=== PATIENT | female | born 1970 | race Caucasian/White ===

== ENCOUNTER 2020-02-08 18:35 | Emergency (ER) | payer OTHER, SELFPAY ==
[2020-02-08 18:42] VITALS: BP 186/76; PULSE 64; RESP 14; TEMP 36.7; O2SAT 99; BMI 38.7
[2020-02-08 20:30] VITALS: BP 129/76; PULSE 80; RESP 16; TEMP 37; O2SAT 98
[2020-02-08 20:39] LABS: Bacteria Urine None Seen; RBC Urine None Seen (0-5/HPF)
--- NOTE | 2020-02-08 20:46 | ED_ITS ---
HPI - Female Genitourinary General Chief complaint: Urogenital-Female Stated complaint: vaginal itch,extreme pain past week Time Seen by Provider: 02/08/20 20:07 Source: patient Mode of arrival: Ambulatory Limitations: no limitations History of Present Illness HPI Narrative: 49-year-old female nonsmoker presents with her a chief complaint of significant vaginal itching over the course of the week. She has had yeast infections before and tried Monistat wipes but was unsuccessful. She has had no vaginal discharge and denies dysuria, frequency or urgency. She denies vaginal bleeding. She denies any systemic findings such as fever, chills nor nausea or vomiting. She denies recent antibiotic use or any change in her diet. MD Complaint: genital swelling and other Onset (ago): day(s) Location: labia Severity: moderate Quality: Itching Duration: constant Relieving factors: none Exacerbating factors: none Patient : No Related Data Previous Rx's Medication Instructions Recorded fluconazole 150 mg PO DAILY #1 tab 02/08/20 Allergies Allergy/AdvReac Type Severity Reaction Status Date / Time No Known Drug Allergies Allergy Verified 02/08/20 18:41 Review of Systems Constitutional Constitutional: Denies chills, Denies fatigue, Denies fever(s), Denies frequent falls, Denies lethargy and Denies weakness Eyes Eyes: Denies change in vision, Denies eye discharge, Denies irritation and Denies loss of vision ENT Ears, Nose, Mouth, and Throat: Denies change in voice, Denies dizziness, Denies neck pain, Denies sore throat and Denies throat swelling Cardiovascular Cardiovascular: Denies chest pain, Denies irregular heart rhythm, Denies lightheadedness, Denies palpitations, Denies dyspnea, Denies dyspnea on exertion and Denies orthopnea Respiratory Respiratory: Denies cough, Denies dyspnea, Denies dyspnea on exertion and Denies wheezing Gastrointestinal Gastrointestinal: Denies abdominal pain, Denies change in bowel habits, Denies diarrhea, Denies nausea and Denies vomiting Genitourinary Genitourinary: Reports genital pruritis Musculoskeletal Musculoskeletal: Denies neck pain and Denies numbness Integumentary/Breasts Skin/Breast: Denies pruritus, Denies erythema, Denies rash and Denies wounds Neurologic Neurologic: Denies behavioral changes, Denies confusion, Denies dizziness, Denies frequent falls, Denies loss of vision, Denies numbness and Denies weakness Psychiatric Psychiatric: Denies anxiety, Denies behavioral changes, Denies confusion, Denies depression, Denies homicidal ideation and Denies suicidal ideation Endocrine Endocrine: Denies fatigue, Denies flushing and Denies palpitations Hematologic/Lymphatic Hematologic/Lymphatic: Denies easy bruising Allergic/Immunologic Allergic/Immunologic: Denies urticaria, Denies throat swelling and Denies wheezing Patient History Substance Use Type: does not use Exam Narrative Exam Narrative: GEN: AOx3 and in mild distress EYES: Pupils are equal, round, and reactive to light and accommodation. Extraoccular muscles are intact bilaterally. There is no subconjunctival hemorrhage or exudate. CHEST: Lungs are clear to auscultation bilaterally and free of wheezes, rales, or rhonchi. Heart rate is regular rhythm, there are no murmurs, clicks, rubs, or gallops. There is no chest wall tenderness. ABD: Abdomen is soft and nontender. There is no guarding or rebound. Bowel sounds are normal in all 4 quadrants. There is no mass or organomegaly. PELVIC: White discharge, erythematous external genitalia, pruritic. Minimal cervical discharge, no cervical pain or bleeding. EXT: Full painless ROM of all extremities with no loss of sensation or strength. SKIN: Warm, pink, and dry. No erythema or rash Initial Vital Signs Initial Vital Signs: Vital Signs Temperature 98.0 F 02/08/20 18:42 Pulse Rate 64 02/08/20 18:42 Respiratory Rate 14 02/08/20 18:42 Blood Pressure 186/76 H 02/08/20 18:42 Pulse Oximetry 99 02/08/20 18:42 Course Orders Ordered: ED Orders 02/08/20 20:37 Urine Microscopic Stat 02/08/20 21:10 Genital Culture Stat RENETTA Prep Stat Discontinued Medications Fluconazole (Diflucan) 150 mg PO NOW ONE Stop: 02/08/20 21:15 Last Admin: 02/08/20 21:47 Dose: 150 mg Documented by: [email or web address] Vital Signs Vital signs: Vital Signs - 8 hr 02/08/20 18:42 02/08/20 20:30 Temperature 98.0 F 98.6 F Pulse Rate 64 80 Respiratory Rate 14 16 Blood Pressure 186/76 H 129/76 Pulse Oximetry 99 98 MDM - Female Genitourinary Lab Data Labs: Lab Results 02/08/20 Range/Units 20:37 Urine RBC None seen (0-5/HPF) Urine WBC 10-30/hpf H (0-5/HPF) Ur Squamous Epith Cells 10-30 /hpf H (0-5/HPF) Urine Bacteria None seen (None) Ur Culture Indicated? Cult not indicated Urine Dip Bedside Urine Glucose 1000 mg/dl Bedside Urine Bilirubin + 1 Bedside Urine Ketone - Negative Urine Specific [place] 1.030 Bedside Urine Occult Blood - Negative Bedside Urine pH 5.5 Bedside Urine Protein +/- 15 Bedside Urine Urobilinogen +/- 1mg Bedside Urine Nitrite - Negative Bedside Urine Leukocytes + 70 Esterase Discharge Plan Departure Patient Disposition: Home Clinical Impression: Vulvovaginal candidiasis Discharge Date/Time: 02/08/20 21:45 Instructions: DI for Vaginal Yeast Infection Activity Restrictions/Additional Instructions: *You have been diagnosed with [yeast infection (Volvo vaginal candidiasis)] *What to do: *Take medications as directed *Follow up with your primary care provider on Tuesday as planned. Also, let them know you were seen in the Emergency Department and that we ask that you be seen in follow up *Return to ER if you should have any new, worsening or concerning symptoms Prescriptions: New fluconazole 150 mg tablet 150 mg PO DAILY Qty: 1 RF: 0 Referrals: Marcelle Sexton MD [Primary Care Provider] -
[2020-02-08 20:52] LABS: Culture Indicated Urine Cult Not Indicated; Squamous Epithelial Cell Urine 10-30 /HPF (0-5/HPF); WBC Urine 10-30/HPF (0-5/HPF)
[2020-02-08] MEDS: FLUCONAZOLE 150 MG TABLET PO (21:47)
== END 2020-02-08 21:45 | disposition home or self-care (01) ==
PROVIDERS: Emergency Provider Emergency Medicine; PCP Family Medicine
DX: B37.3 Candidiasis of vulva and vagina (principal)
CPT/HCPCS: 81003; 81015; 87070; 87077; 87205; 87220; 99283

== ENCOUNTER → 2020-07-26 13:52 | Outpatient (CLI) | payer OTHER, SELFPAY ==
--- NOTE | 2020-07-26 | DI.MG.S_ITS ---
BILATERAL DIGITAL SCREENING MAMMOGRAM 3D/2D WITH CAD: 07/26/2020 CLINICAL: Routine screening. Comparison is made to exams dated: 02/27/2013 mammogram, 05/12/2015 mammogram, and 04/18/2018 mammogram - [facility]. There are scattered fibroglandular elements in both breasts. Current study was also evaluated with a Computer Aided Detection (CAD) system. No significant masses, calcifications, or other findings are seen in either breast. There has been no significant interval change. IMPRESSION: NEGATIVE There is no mammographic evidence of malignancy. A 1 year screening mammogram is recommended. This exam was interpreted at Station ID: [id number]. NOTE: For mammograms, a report in lay terms will be sent to the patient. Approximately 15% of breast malignancies will not be visualized mammographically. In the management of a palpable breast mass, a negative mammogram must not discourage biopsy of a clinically suspicious lesion. Electronically Signed By: Fahad carlos/vignesh:07/28/2020 10:40:36 letter sent: Normal Exam ACR BI-RADS Category 1: Negative [id number]
== END ==
PROVIDERS: PCP Family Medicine; Referring Provider Family Medicine; Visit Provider Family Medicine
DX: Z12.31 Encounter for screening mammogram for malignant neoplasm of breast (principal)
CPT/HCPCS: 77063; 77067

== ENCOUNTER 2021-03-04 19:30 | Emergency (ER) | payer OTHER, SELFPAY ==
[2021-03-04] VITALS (9 sets, daily range): BP systolic 112–128; BP diastolic 57–85; PULSE 71–113; RESP 16–20; TEMP 36.7; O2SAT 93–97
--- NOTE | 2021-03-04 20:11 | DI.RAD.S_ITS ---
PROCEDURE: XR CHEST 1V INDICATIONS: suspected sepsis TECHNIQUE: One view of the chest was acquired. COMPARISON: None. FINDINGS: Surgical changes and devices: None. Lungs and pleura: Lungs are clear. No pleural effusions or pneumothorax. Mediastinum: Mediastinal contours appear normal. Heart size is normal. Bones and chest wall: No suspicious bony lesions. Overlying soft tissues appear unremarkable. IMPRESSION: No acute cardiopulmonary process. Dictated by: Juwan Link M.D. on 03/04/2021 at 20:45 Approved by: Juwan Link M.D. on 03/04/2021 at 20:46
[2021-03-04 20:14] LABS: COVID19 -Nasal RAPID POSITIVE (Negative)
[2021-03-04] MEDS: SODIUM CHLORIDE 0.9% 1,000 ML 1000 ML IV (20:46)
[2021-03-04] MEDS: KETOROLAC 30 MG/ML VIAL 15 MG IV (20:47)
[2021-03-04 21:17] LABS: Add Manual Diff / Slide Review NO; Basophils Absolute Auto 0 /uL (0-100); Basophils Percent Auto 0.7 % (0-2); Eosinophils Absolute Auto 0 /uL (0-450); Hematocrit 45.9 % (36-46); Hemoglobin 15.4 g/dL (12.0-16.0); Lymphocytes Absolute Auto 900 /uL (1100-4500); Lymphocytes Percent Auto 23.9 % (25-40); Mean Corpuscular HGB Conc 33.4 % (30-36); Mean Corpuscular Hemoglobin 29.3 PG (26-34); Mean Corpuscular Volume 87.7 fL (80-100); Monocytes Absolute Auto 300 /uL (0-900); Monocytes Percent Auto 7.2 % (3-14); Neutrophils Absolute Auto 2600 /uL (1500-7000); Neutrophils Percent Auto 68.2 % (50-75); Platelet Count 204 X10^3/uL (150-400); Red Blood Cell Count 5.24 X10^6/uL (4.0-5.2); Red Cell Distribution Width 13.5 % (11.6-14.8); White Blood Cell Count 3.9 X10^3/uL (4.5-11.0)
[2021-03-04 21:24] LABS: Alanine Aminotransferase 49 IU/L (<35); Albumin 4.2 g/dL (3.5-5.0); Albumin Globulin Ratio 1.4 (1.0-2.8); Alkaline Phosphatase 144 U/L (38-126); Aspartate Aminotransferase 45 IU/L (14-36); BUN Creatinine Ratio 19.6 (6-22); Bilirubin Total 0.3 mg/dL (0.2-1.3); Blood Urea Nitrogen 10 mg/dL (7-17); Calcium 8.8 mg/dL (8.4-10.2); Carbon Dioxide 23 mmol/L (22-32); Chloride 100 mmol/L (98-107); Estimated Glomerular Filt Rate > 60.0 mL/min (>60); Globulin 3.1 g/dL (1.7-4.1); Glucose 372 mg/dL (70-100); HEMOLYSIS < 15 (0-50); Lipase 252 U/L (23-300); Potassium 4.4 mmol/L (3.4-5.1); Sodium 132 mmol/L (137-145); Total Protein 7.3 g/dL (6.3-8.2)
[2021-03-04 21:41] LABS: Procalcitonin 0.07 ng/mL (<0.5)
--- NOTE | 2021-03-04 21:54 | ED_ITS ---
HPI - Headache General Chief Complaint: Headache Stated Complaint: migraine since tuesday, unsteady on feet Time Seen by Provider: 03/04/21 20:14 Mode of arrival: Ambulatory History of Present Illness HPI Narrative: 53-year-old woman with a history of depression, diabetes that has been untreated for the last year as she has had difficulty getting in to providers presents with worsening headache over the last 3 days. Last night she noted fevers and chills mild cough she is not complaining of nausea vomiting or diarrhea. She is not particularly short of breath and she is having no chest pain. She states that she does have a history of migraines and initially thought that she was having some allergy issues and a migraine headache. Yesterday she needs to leave work because the headache was so severe not responding to ibuprofen or Tylenol. She is not COVID vaccinated. She is not complaining of heart palpitations and has not noticed changes to taste or smell. Related Data Previous Rx's Medication Instructions Recorded fluconazole 150 mg tablet 150 mg PO DAILY #1 tab 02/08/20 Allergies Allergy/AdvReac Type Severity Reaction Status Date / Time No Known Drug Allergies Allergy Verified 02/08/20 18:41 Review of Systems Review of Systems Narrative: Remainder of complete review of systems is otherwise unremarkable except for that included in the HPI. Patient History Medical History COVID-19 Depression Diabetes Migraine Social History Smoking Status: Never smoker Smoking Status: Never smoker Substance Use Type: does not use Exam Narrative Exam Narrative: General: Healthy appearing, moderate headache pain Able to give a complete and coherent history. Well-nourished well-developed HEENT: Moist mucous membranes, normal sclera with reactive pupils, Respiratory: Lungs are clear to auscultation, no wheezing no rales no rhonchi. Full and symmetrical air movement Cardiac: Tachycardic with Regular rate and rhythm no murmurs no bruits Abdomen: Soft, nontender, good bowel tones, no flank pain Skin: Warm and dry, no rashes Neurologic: Grossly neurologically intact with no obvious asymmetries or abnormalities Extremities: No trauma, well perfused Psych: Cooperative, appropriate insight and affect Initial Vital Signs Initial Vital Signs: Vital Signs Temperature 98.1 F 03/04/21 19:36 Pulse Rate 113 H 03/04/21 19:36 Respiratory Rate 20 03/04/21 19:36 Blood Pressure 127/81 03/04/21 19:36 Pulse Oximetry 97 03/04/21 19:36 Course Orders Ordered: ED Orders 03/04/21 19:50 COVID19 -Nasal swab/Pre-Proc Stat 03/04/21 20:11 XR chest 1V Stat 03/04/21 21:05 Complete Blood Count AUTO DIFF Stat Comprehensive Metabolic Panel Stat Lactate (Lactic Acid) Stat Lipase Stat Procalcitonin Stat 03/04/21 21:28 EKG-12 Lead Stat 03/04/21 22:05 Blood Culture Stat Discontinued Medications Sodium Chloride (Normal Saline 0.9%) 1,000 mls @ 1,000 mls/hr IV BOLUS ONE Stop: 03/04/21 21:16 Last Infusion: 03/04/21 22:40 Dose: 0 mls/hr Documented by: Admin: 03/04/21 20:46 Dose: 1,000 mls/hr Documented by: ARGENIS CASIRIVIMAB/IMDEVIMAB 10 ml/ (Sodium Chloride) 260 mls @ 260 mls/hr IV NOW ONE Stop: 03/05/21 00:44 Last Admin: 03/05/21 00:03 Dose: 260 mls/hr Documented by: KLEVER Ketorolac Tromethamine (Ketorolac 30 Mg/Ml Vial) 15 mg IV NOW ONE Stop: 03/04/21 20:25 Last Admin: 03/04/21 20:47 Dose: 15 mg Documented by: ARGENIS Vital Signs Vital signs: Vital Signs - 8 hr 03/04/21 19:36 03/04/21 21:19 03/04/21 21:30 Temperature 98.1 F Pulse Rate 113 H 100 H 97 H Respiratory Rate 20 Blood Pressure 127/81 127/73 Pulse Oximetry 97 95 94 03/04/21 22:00 Temperature Pulse Rate 79 Respiratory Rate 16 Blood Pressure 117/57 L Pulse Oximetry 95 MDM - Headache Lab Data Result diagrams: 03/04/21 21:05 03/04/21 21:05 Labs: Lab Results 03/04/21 03/04/21 03/04/21 Range/Units 19:50 21:05 21:05 WBC 3.9 L (4.5-11.0) X10^3/uL RBC 5.24 H (4.0-5.2) X10^6/uL Hgb 15.4 (12.0-16.0) g/dL Hct 45.9 (36-46) % MCV 87.7 (80-100) fL MCH 29.3 (26-34) PG MCHC 33.4 (30-36) % RDW 13.5 (11.6-14.8) % Plt Count 204 (150-400) X10^3/uL Neut % (Auto) 68.2 (50-75) % Lymph % (Auto) 23.9 L (25-40) % Mcleod % (Auto) 7.2 (3-14) % Eos % (Auto) 0.0 L (2-4) % Baso % (Auto) 0.7 (0-2) % Neut # (Auto) 2600 (1605-4811) /uL Lymph # (Auto) 900 L (6509-2097) /uL Mcleod # (Auto) 300 (0-900) /uL Eos # (Auto) 0 (0-450) /uL Baso # (Auto) 0 (0-100) /uL Sodium 132 L (137-145) mmol/L Potassium 4.4 (3.4-5.1) mmol/L Chloride 100 (98-107) mmol/L Carbon Dioxide 23 (22-32) mmol/L BUN 10 (7-17) mg/dL Creatinine 0.51 L (0.52-1.04) mg/dL Estimated GFR > 60.0 (>60) mL/min BUN/Creatinine Ratio 19.6 (6-22) Glucose 372 H (70-100) mg/dL Lactate (0.7-2.1) mmol/L Calcium 8.8 (8.4-10.2) mg/dL Total Bilirubin 0.3 (0.2-1.3) mg/dL AST 45 H (14-36) IU/L ALT 49 H (<35) IU/L Alkaline Phosphatase 144 H (38-126) U/L Total Protein 7.3 (6.3-8.2) g/dL Albumin 4.2 (3.5-5.0) g/dL Globulin 3.1 (1.7-4.1) g/dL Albumin/Globulin Ratio 1.4 (1.0-2.8) Lipase 252 (23-300) U/L Procalcitonin 0.07 (<0.5) ng/mL SARS-CoV-2 (PCR) Positive H (Negative) 03/04/21 Range/Units 21:05 WBC (4.5-11.0) X10^3/uL RBC (4.0-5.2) X10^6/uL Hgb (12.0-16.0) g/dL Hct (36-46) % MCV (80-100) fL MCH (26-34) PG MCHC (30-36) % RDW (11.6-14.8) % Plt Count (150-400) X10^3/uL Neut % (Auto) (50-75) % Lymph % (Auto) (25-40) % Mcleod % (Auto) (3-14) % Eos % (Auto) (2-4) % Baso % (Auto) (0-2) % Neut # (Auto) (9410-3419) /uL Lymph # (Auto) (9516-4883) /uL Mcleod # (Auto) (0-900) /uL Eos # (Auto) (0-450) /uL Baso # (Auto) (0-100) /uL Sodium (137-145) mmol/L Potassium (3.4-5.1) mmol/L Chloride (98-107) mmol/L Carbon Dioxide (22-32) mmol/L BUN (7-17) mg/dL Creatinine (0.52-1.04) mg/dL Estimated GFR (>60) mL/min BUN/Creatinine Ratio (6-22) Glucose (70-100) mg/dL Lactate 2.0 (0.7-2.1) mmol/L Calcium (8.4-10.2) mg/dL Total Bilirubin (0.2-1.3) mg/dL AST (14-36) IU/L ALT (<35) IU/L Alkaline Phosphatase (38-126) U/L Total Protein (6.3-8.2) g/dL Albumin (3.5-5.0) g/dL Globulin (1.7-4.1) g/dL Albumin/Globulin Ratio (1.0-2.8) Lipase (23-300) U/L Procalcitonin (<0.5) ng/mL SARS-CoV-2 (PCR) (Negative) Imaging Data Chest x-ray: Radiologist's Impression: FINDINGS: Surgical changes and devices: None. Lungs and pleura: Lungs are clear. No pleural effusions or pneumothorax. Mediastinum: Mediastinal contours appear normal. Heart size is normal. Bones and chest wall: No suspicious bony lesions. Overlying soft tissues appear unremarkable. IMPRESSION: No acute cardiopulmonary process. Dictated by: Juwan Link M.D. on 03/04/2021 at 20:45 ECG Data Interpretation: Sinus rhythm at a rate of 95 Normal axis, normal intervals No acute ischemic changes MDM Narrative Medical decision making narrative: 50-year-old woman with untreated diabetes for the last year, hypertension on day 2-3 of COVID infection, unvaccinated with severe headache is presenting sign. Oxygen saturations are in the 96% range in she will be available to be discharged home. She would be an excellent monoclonal antibody patient. Casirivimab/imdevimab is infused. Patient is observed for an hour post infusion tolerated it well. She is safe for discharge home at this time Discharge Plan Departure Patient Disposition: Home Clinical Impression: COVID-19 Instructions: DI for COVID-19 (Suspected or Confirmed ) Activity Restrictions/Additional Instructions: You received a monoclonal antibody infusion in the emergency room today hopefully this will help your body fight the COVID-19 infection so that you do not need to be admitted to the hospital. If you have worsening shortness of breath you do need to return to the emergency department for further evaluation. Please follow-up outlined self quarantine and isolation as above to avoid sha ring the virus with other people. I hope you heal quickly Prescriptions: No Action fluconazole 150 mg tablet 150 mg PO DAILY Qty: 1 RF: 0 Referrals: Sallie Olguin DO [Primary Care Provider] -
[2021-03-05] VITALS (7 sets, daily range): BP systolic 106–142; BP diastolic 53–75; PULSE 64–69; RESP 18; TEMP 36.9; O2SAT 91–96
[2021-03-05] MEDS: IMDEVIMAB IV (00:03)
[2021-03-05] MEDS: SODIUM CHLORIDE IV (00:03)
[2021-03-05] MEDS: CASIRIVIMAB IV (00:03)
== END 2021-03-05 02:05 | disposition home or self-care (01) ==
PROVIDERS: Emergency Provider Emergency Medicine; PCP Family Medicine
DX: U07.1 COVID-19 (principal)
CPT/HCPCS: 36415; 71045; 80053; 83605; 83690; 84145; 85025; 87040; 87635; 93005; 93010; 96361; 96365; 96375; 99284; C9803; J1885

== ENCOUNTER 2022-07-18 17:19 | Emergency (ER) | payer OTHER, SELFPAY ==
[2022-07-18] VITALS (7 sets, daily range): BP systolic 116–147; BP diastolic 66–105; PULSE 72–128; RESP 16; TEMP 36.8; O2SAT 96–99; BMI 35.3
--- NOTE | 2022-07-18 18:18 | ED.FALL ---
HPI - Fall <Alanis Donnelly PA-C - Last Filed: 07/18/22 20:35> General Chief Complaint: Fall Stated Complaint: fell down the stairs, tail bone pain Time Seen by Provider: 07/18/22 17:27 Source: patient Mode of arrival: Ambulatory History of Present Illness HPI Narrative: Patient is 52 years old female, who slipped and fell her wooden steps about 3:15 p.m. this noon, she landed on her coccyx, slid down about 3 4 steps down, was able to get up. However as the day went by, her pain and costal area got really bad, now grading about 8/10. Noticed sitting is especially difficult, while she if she is moving, pain is about 3 to 4/10. Patient reports she had some pelvic fracture some time ago. She denies any tingling numbness, in lower extremity, loss of control over her bowel or urination functions. Related Data Previous Rx's Medication Instructions Recorded fluconazole 150 mg tablet 150 mg PO DAILY 1 dose #1 tab 02/08/20 tramadol 50 mg tablet 50 mg PO TID PRN pain #20 tabs 07/18/22 Allergies Allergy/AdvReac Type Severity Reaction Status Date / Time No Known Drug Allergies Allergy Verified 07/18/22 18:24 Review of Systems <Alanis Donnelly PA-C - Last Filed: 07/18/22 20:35> Review of Systems Narrative: GENERAL: Denies chills, fatigue, malaise, fever, sweats. HEENT: Denies sinus pain, ear pain, sore throat, difficulty swallowing, dizziness. RESPIRATORY: Denies dyspnea, cough, wheezing, hemoptysis, sputum. CARDIOVASCULAR: Denies chest pain, palpitations, orthopnea, edema, GASTROINTESTINAL: Denies nausea, vomiting, abdominal pain, diarrhea, constipation, melena. : Denies dysuria, frequency, incontinence, hematuria, urinary retention. MUSCULOSKELETAL: denies weakness, in lower extremity, admits to coccyx pain no other joint pain, or bony pain SKIN: Denies rash, skin lesions, or other NEUROLOGIC: Denies weakness, headache, numbness, change in speech, confusion, seizures, incoordination. PSYCHIATRIC: No concerning psychosocial issues. 12 point review of systems is negative except for those stated above Patient History <Alanis Donnelly PA-C - Last Filed: 07/18/22 20:35> Medical History COVID-19 Depression Diabetes Migraine Social History Smoking Status: Never smoker Smoking Status: Never smoker alcohol intake frequency: holidays/special occasions only Substance Use Type: marijuana Exam <Alanis Donnelly PA-C - Last Filed: 07/18/22 20:35> Narrative Exam Narrative: GENERAL: 52 year old patient appears stated age. Well-developed patient, in no acute distress. She appears comfortable lying on the side of her bed. HEAD: Atraumatic. Normocephalic. EYES: Pupils equal round and reactive. Extraocular motions intact. No scleral icterus. No injection or drainage. ENT: Nose without bleeding, purulent drainage. Throat without erythema, tonsillar hypertrophy or exudate. Airway patent. NECK: Trachea midline. Non tender CARDIOVASCULAR: Regular rate and rhythm without murmurs, gallops, or rubs. RESPIRATORY: Clear to auscultation. Breath sounds equal bilaterally. No wheezes, rales, or rhonchi. GASTROINTESTINAL: Abdomen soft, non-tender, nondistended. EXTREMITIES: No edema or joint tenderness. BACK: coccyx area inspected, no ecchymosis, tenderness advised distal coccyx. The rest of spine is Nontender without deformity or crepitance. No flank tenderness. NEURO: AOx3. Lower extremity reflexes patellar Achillis is normal, symmetric bilaterally. SKIN: No rash or erythema of visible areas no bruises around coccyx area Initial Vital Signs Initial Vital Signs: Vital Signs Temperature 98.2 F 07/18/22 17:42 Pulse Rate 128 H 07/18/22 17:42 Respiratory Rate 16 07/18/22 17:42 Blood Pressure 147/105 H 07/18/22 17:42 Pulse Oximetry 99 07/18/22 17:42 Oxygen Delivery Method 07/18/22 17:42 <Daniela Falk DO - Last Filed: 07/23/22 07:39> Initial Vital Signs Initial Vital Signs: Vital Signs Temperature 98.2 F 07/18/22 17:42 Pulse Rate 128 H 07/18/22 17:42 Respiratory Rate 16 07/18/22 17:42 Blood Pressure 147/105 H 07/18/22 17:42 Pulse Oximetry 99 07/18/22 17:42 Oxygen Delivery Method 07/18/22 17:42 Course <Alanis Donnelly PA-C - Last Filed: 07/18/22 20:35> Orders Ordered: Discontinued Medications Tramadol HCl (Tramadol 50 Mg Prepack) 1 bottle MISC SEEINSTR ONE Stop: 07/18/22 18:24 Last Admin: 07/18/22 19:41 Dose: 1 bottle Documented By: RL Vital Signs Vital signs: Vital Signs - 8 hr 07/18/22 17:42 07/18/22 17:51 07/18/22 18:00 Temperature 98.2 F Pulse Rate 128 H 86 Respiratory Rate 16 Blood Pressure 147/105 H 116/73 Pulse Oximetry 99 97 Oxygen Delivery Method Room Air 07/18/22 18:00 07/18/22 18:36 07/18/22 19:00 Temperature Pulse Rate 83 78 93 H Respiratory Rate Blood Pressure Pulse Oximetry 96 97 96 Oxygen Delivery Method 07/18/22 19:30 07/18/22 19:38 07/18/22 19:38 Temperature Pulse Rate 72 74 Respiratory Rate Blood Pressure 116/66 Pulse Oximetry 96 96 Oxygen Delivery Method <Daniela Falk DO - Last Filed: 07/23/22 07:39> Orders Ordered: Discontinued Medications Tramadol HCl (Tramadol 50 Mg Prepack) 1 bottle MISC SEEINSTR ONE Stop: 07/18/22 18:24 Last Admin: 07/18/22 19:41 Dose: 1 bottle Documented By: RL Vital Signs Vital signs: Vital Signs - 8 hr 07/18/22 17:42 07/18/22 17:51 07/18/22 18:00 Temperature 98.2 F Pulse Rate 128 H 86 Respiratory Rate 16 Blood Pressure 147/105 H 116/73 Pulse Oximetry 99 97 Oxygen Delivery Method Room Air 07/18/22 18:00 07/18/22 18:36 07/18/22 19:00 Temperature Pulse Rate 83 78 93 H Respiratory Rate Blood Pressure Pulse Oximetry 96 97 96 Oxygen Delivery Method 07/18/22 19:30 07/18/22 19:38 07/18/22 19:38 Temperature Pulse Rate 72 74 Respiratory Rate Blood Pressure 116/66 Pulse Oximetry 96 96 Oxygen Delivery Method MDM - Fall <Alanis KIRSTEN Donnelly - Last Filed: 07/18/22 20:35> Imaging Data coccyx xray: Radiologist's Impression: Soft tissues:? Visualized bowel gas pattern is normal.? No suspicious soft tissue densities.? Radiodensities probably bladder sling in the pubic bones.? ? IMPRESSION:? ? 1. No sacrococcygeal fractures visible. ? 2. 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 ? [facility] Narrative Medical decision making narrative: Patient sustained fall from steps, hitting her [facility] area, resulting in soft tissue contusion, muscle spasm. The x-ray was ordered and was negative. Discussed with patient conservative management, heat, rest than genital range of motion therapy. . Discharge Plan Departure Patient Disposition: Home Clinical Impression: Coccyxdynia, Sacral contusion Instructions: DI for Contusion Activity Restrictions/Additional Instructions: *You have been diagnosed with coccyxdynia *What to do: *Please continue to take your regular medications as directed. New medication prescriptions sent to your pharmacy: tramadol 50mg Heating pad, rest advised once pain is under control, gentle range of motion exercise advised please follow with your PCP in 2-3 days, call for an appointment. Let them know you were seen in the Emergency Department and that we ask that you be seen in follow up. We will electronically transmit a record of today's note if your PCP is in our system *If you do not have a primary care provider please contact the [facility] Resource line at [phone]. They will ask some questions about your medical history and help get you set up with a doctor in the community. *Return to Emergency Department if you should have any new, worsening or concerning symptoms, such as [fever greater than 101 F, shaking chills, worsening pain, persistent vomiting or other bothersome symptoms] Prescriptions: New tramadol 50 mg tablet 50 mg PO TID PRN (Reason: pain) Qty: 20 0RF No Action fluconazole 150 mg tablet 150 mg PO DAILY Qty: 1 0RF Rx Instructions: Take on Tuesday if still having symptoms Referrals: Sallie Olguin DO [Primary Care Provider] - <Daniela Falk DO - Last Filed: 07/23/22 07:39> Cosign ED Attending Cosignature Attestation: I was immediately available in the department for consultation. Documentation has been reviewed. I agree with assessment and plan.
--- NOTE | 2022-07-18 18:22 | DI.RAD.S_ITS ---
PROCEDURE: XR SACRUM COCCYX MIN 2V INDICATIONS: Fall onto buttocks TECHNIQUE: 3 views of the sacrum and coccyx acquired. COMPARISON: None. FINDINGS: Bones: No fractures or dislocations. There is possible incomplete segmentation of L4-5, and L5-S1. No suspicious bony lesions. Soft tissues: Visualized bowel gas pattern is normal. No suspicious soft tissue densities. Radiodensities probably bladder sling in the pubic bones. IMPRESSION: 1. No sacrococcygeal fractures visible. 2. 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 Dictated by: Bianca John M.D. on 07/18/2022 at 19:10 Approved by: Bianca John M.D. on 07/18/2022 at 19:13
[2022-07-18] MEDS: TRAMADOL 50 MG PREPACK 1 BOTTLE MISC (19:41)
== END 2022-07-18 19:47 | disposition home or self-care (01) ==
PROVIDERS: Emergency Provider Physician Assistant Medical; PCP Family Medicine
DX: S30.0XXA Contusion of lower back and pelvis, initial encounter (principal); M53.3 Sacrococcygeal disorders, not elsewhere classified; W10.9XXA Fall (on) (from) unspecified stairs and steps, initial encounter
CPT/HCPCS: 72220; 99281; 99283

== ENCOUNTER 2023-03-01 14:41 | Emergency (ER) | payer OTHER, SELFPAY ==
[2023-03-01 15:14] VITALS: BP 162/74; PULSE 68; RESP 18; TEMP 36.2; O2SAT 98; BMI 32.5
--- NOTE | 2023-03-01 16:16 | PC.NURSE ---
pt states the only other time she has ever had a migraine was when she was with her youngest 26 years ago. patient is not now, post menopausal. she has tried ibuprofen and caffiene to relieve this headache and after effecting her work today, she decided to come to ER for help
--- NOTE | 2023-03-01 16:18 | ED_ITS ---
HPI - Headache <Carlin Holman PA-C - Last Filed: 03/01/23 18:07> General Chief Complaint: Headache Stated Complaint: Migraine Time Seen by Provider: 03/01/23 16:12 Mode of arrival: Family Vehicle History of Present Illness HPI Narrative: 52-year-old female with past medical history diabetes presents to the ED with a headache since 02/20/2023. Patient has been taking Advil with no relief. Patient states that she has had headaches once in awhile, however this 1 is different and has lasted longer than any of her prior headaches. Patient denies nausea, vomiting, fever, chills, neck stiffness, vision changes. Related Data Previous Rx's Medication Instructions Recorded fluconazole 150 mg tablet 150 mg PO DAILY 1 dose #1 tab 02/08/20 tramadol 50 mg tablet 50 mg PO TID PRN pain #20 tabs 07/18/22 Allergies Allergy/AdvReac Type Severity Reaction Status Date / Time No Known Drug Allergies Allergy Verified 03/01/23 15:20 Review of Systems <Carlin Holman PA-C - Last Filed: 03/01/23 18:07> Review of Systems ROS Unobtainable: All systems reviewed & are unremarkable except as noted in HPI and below Constitutional Constitutional: Denies chills, Denies fatigue, Denies fever(s), Denies frequent falls, Reports headache(s), Denies lethargy and Denies weakness Eyes Eyes: Denies change in vision, Denies eye discharge, Denies irritation and Denies loss of vision ENT Ears, Nose, Mouth, and Throat: Denies change in voice, Denies dizziness, Reports headache(s), Reports neck pain, Denies sore throat and Denies throat swelling Cardiovascular Cardiovascular: Denies chest pain, Denies irregular heart rhythm, Denies lightheadedness, Denies palpitations, Denies dyspnea, Denies dyspnea on exertion and Denies orthopnea Respiratory Respiratory: Denies cough, Denies dyspnea, Denies dyspnea on exertion and Denies wheezing Gastrointestinal Gastrointestinal: Denies abdominal pain, Denies change in bowel habits, Denies diarrhea, Denies nausea and Denies vomiting Genitourinary Genitourinary: Denies hematuria, Denies flank pain, Denies urinary incontinence and Denies urinary urgency Musculoskeletal Musculoskeletal: Denies back pain, Denies muscle weakness, Reports neck pain, Denies numbness and Denies tingling Integumentary/Breasts Skin/Breast: Denies pruritus, Denies erythema, Denies rash and Denies wounds Neurologic Neurologic: Denies behavioral changes, Denies confusion, Denies dizziness, Denies frequent falls, Reports headache(s), Denies loss of vision, Denies numbness, Denies tingling and Denies weakness Psychiatric Psychiatric: Denies anxiety, Denies behavioral changes, Denies confusion, Denies depression, Denies homicidal ideation and Denies suicidal ideation Endocrine Endocrine: Denies fatigue, Denies flushing and Denies palpitations Hematologic/Lymphatic Hematologic/Lymphatic: Denies easy bruising Allergic/Immunologic Allergic/Immunologic: Denies urticaria, Denies throat swelling and Denies wheezing Patient History <Carlin Holman PA-C - Last Filed: 03/01/23 18:07> Medical History COVID-19 Depression Diabetes Migraine Social History Smoking Status: Never smoker Smoking Status: Never smoker alcohol intake frequency: a few times a month Substance Use Type: marijuana Exam <Carlin Holman PA-C - Last Filed: 03/01/23 18:07> Narrative Exam Narrative: Const General:?cooperative, healthy appearing and comfortable [facility] Head:?normal to inspection Ears:?hearing grossly normal bilaterally Nose:?external nose normal Face and sinus:?normal facial exam and sinuses nontender Mouth:?oral mucosae normal Throat:?posterior oropharynx normal Eyes General:?appearance normal, both eyes and all related structures Neck Neck:?normal visual inspection and no lymphadenopathy noted Resp Effort & Inspection:?normal respiratory effort Auscultation:?clear to auscultation bilaterally Cardio Rate:?regular rate Rhythm:?regular rhythm Neuro General:?patient alert, patient awake and patient oriented x3; PERRLA; CN 1 through 12 intact bilaterally. Initial Vital Signs Initial Vital Signs: Vital Signs Temperature 97.2 F L 03/01/23 15:14 Pulse Rate 68 03/01/23 15:14 Respiratory Rate 18 03/01/23 15:14 Blood Pressure 162/74 H 03/01/23 15:14 Pulse Oximetry 98 03/01/23 15:14 Oxygen Delivery Method Room Air 03/01/23 15:14 <Radhika Gaxiola DO - Last Filed: 03/02/23 09:04> Initial Vital Signs Initial Vital Signs: Vital Signs Temperature 97.2 F L 03/01/23 15:14 Pulse Rate 68 03/01/23 15:14 Respiratory Rate 18 03/01/23 15:14 Blood Pressure 162/74 H 03/01/23 15:14 Pulse Oximetry 98 03/01/23 15:14 Oxygen Delivery Method Room Air 03/01/23 15:14 Course <Carlin Holman PA-C - Last Filed: 03/01/23 18:07> Orders Ordered: Discontinued Medications Acetaminophen (Acetaminophen 325 Mg Tablet) 975 mg PO NOW ONE Stop: 03/01/23 16:18 Last Admin: 03/01/23 16:41 Dose: 975 mg Documented By: NR Dexamethasone (Dexamethasone 10 Mg/Ml Vial) 10 mg IV NOW ONE Stop: 03/01/23 16:18 Last Admin: 03/01/23 16:41 Dose: 10 mg Documented By: NR Diphenhydramine HCl (Diphenhydramine 50 Mg/Ml Vial) 25 mg IV NOW ONE Stop: 03/01/23 16:18 Last Admin: 03/01/23 16:41 Dose: 25 mg Documented By: NR Sodium Chloride (Normal Saline 0.9%) 1,000 mls @ 1,000 mls/hr IV BOLUS ONE Stop: 03/01/23 17:17 Last Infusion: 03/01/23 18:12 Dose: 0 mls/hr Documented By: Admin: 03/01/23 16:42 Dose: 1,000 mls/hr Documented By: NR Metoclopramide HCl (Metoclopramide 10 Mg/2 Ml Inj) 10 mg IV NOW ONE Stop: 03/01/23 16:18 Last Admin: 03/01/23 16:41 Dose: 10 mg Documented By: NR Vital Signs Vital signs: Vital Signs - 8 hr 03/01/23 15:14 Temperature 97.2 F L Pulse Rate 68 Respiratory Rate 18 Blood Pressure 162/74 H Pulse Oximetry 98 Oxygen Delivery Method Room Air <Radhika Gaxiola DO - Last Filed: 03/02/23 09:04> Orders Ordered: Discontinued Medications Acetaminophen (Acetaminophen 325 Mg Tablet) 975 mg PO NOW ONE Stop: 03/01/23 16:18 Last Admin: 03/01/23 16:41 Dose: 975 mg Documented By: NR Dexamethasone (Dexamethasone 10 Mg/Ml Vial) 10 mg IV NOW ONE Stop: 03/01/23 16:18 Last Admin: 03/01/23 16:41 Dose: 10 mg Documented By: NR Diphenhydramine HCl (Diphenhydramine 50 Mg/Ml Vial) 25 mg IV NOW ONE Stop: 03/01/23 16:18 Last Admin: 03/01/23 16:41 Dose: 25 mg Documented By: NR Sodium Chloride (Normal Saline 0.9%) 1,000 mls @ 1,000 mls/hr IV BOLUS ONE Stop: 03/01/23 17:17 Last Infusion: 03/01/23 18:12 Dose: 0 mls/hr Documented By: Admin: 03/01/23 16:42 Dose: 1,000 mls/hr Documented By: NR Metoclopramide HCl (Metoclopramide 10 Mg/2 Ml Inj) 10 mg IV NOW ONE Stop: 03/01/23 16:18 Last Admin: 03/01/23 16:41 Dose: 10 mg Documented By: NR Vital Signs Vital signs: Vital Signs - 8 hr 03/01/23 15:14 Temperature 97.2 F L Pulse Rate 68 Respiratory Rate 18 Blood Pressure 162/74 H Pulse Oximetry 98 Oxygen Delivery Method Room Air MDM - Headache <Carlin Holman PA-C - Last Filed: 03/01/23 18:07> Lab Data Labs: Urine Dip Bedside Urine Glucose 1000 mg/dl Bedside Urine Bilirubin - Negative Bedside Urine Ketone - Negative Urine Specific [place] 1.010 Bedside Urine Occult Blood - Negative Bedside Urine pH 6.0 Bedside Urine Protein - Negative Bedside Urine Urobilinogen - Negative Bedside Urine Nitrite - Negative Bedside Urine Leukocytes - Negative Esterase MDM Narrative Medical decision making narrative: 52-year-old female with past medical history diabetes presents to the ED with a headache since 02/20/2023. Concern for primary headache versus mass versus dehydration versus other. Will obtain CT head. Will will give IV fluids, Tylenol, Reglan, Benadryl, dexamethasone. Will reassess. CT head with no acute findings. Patient's symptoms resolved with the medications. Recommend good hydration. May take Tylenol or ibuprofen if pain recurs. Recommend follow-up with PCP. ED return precautions discussed with patient. Patient verbalized understanding. Medical records reviewed: Yes <Radhika Gaxiola DO - Last Filed: 03/02/23 09:04> Lab Data Labs: Urine Dip Bedside Urine Glucose 1000 mg/dl Bedside Urine Bilirubin - Negative Bedside Urine Ketone - Negative Urine Specific [place] 1.010 Bedside Urine Occult Blood - Negative Bedside Urine pH 6.0 Bedside Urine Protein - Negative Bedside Urine Urobilinogen - Negative Bedside Urine Nitrite - Negative Bedside Urine Leukocytes - Negative Esterase Discharge Plan Departure Patient Disposition: Home Clinical Impression: Headache Instructions: DI for Headache Activity Restrictions/Additional Instructions: You were evaluated in the ED today for a headache. Your CT head was normal. Your symptoms resolved with the medications. You were given IV fluids, dexamethasone, Benadryl, Reglan, Tylenol. You may continue to take ibuprofen and Tylenol at home if your headache returns. Please continue to stay well hydrated. Please follow-up with your PCP in 3-5 days. Return to the ED if you have worsening symptoms, persistent vomiting. Prescriptions: No Action fluconazole 150 mg tablet 150 mg PO DAILY Qty: 1 0RF Rx Instructions: Take on Tuesday if still having symptoms tramadol 50 mg tablet 50 mg PO TID PRN (Reason: pain) Qty: 20 0RF Referrals: Sallie Olguin DO [Primary Care Provider] - Stand Alone Forms: Patient Portal/API <Radhika Gaxiola DO - Last Filed: 03/02/23 09:04> Cosign ED Attending Anitaature Attestation: I was immediately available in the department for consultation. Documentation has been reviewed.
--- NOTE | 2023-03-01 16:30 | DI.CT.S_ITS ---
PROCEDURE: CT HEAD/BRAIN WO CON INDICATIONS: Headache TECHNIQUE: Noncontrast 4.5 mm thick angled axial sections acquired from the foramen magnum to the vertex, with coronal and sagittal reformats. For radiation dose reduction, the following was used: automated exposure control, adjustment of mA and/or kV according to patient size. COMPARISON: None. FINDINGS: Image quality: Excellent. CSF spaces: Basal cisterns are patent. No extra-axial fluid collections. Ventricles are normal in size and shape. Brain: No midline shift. No intracranial masses or hemorrhage. Noel-white matter interface is normal. Skull and face: Calvarium and visualized facial bones are intact, without suspicious lesions. Sinuses: Visualized sinuses and mastoids are clear. IMPRESSION: No acute intracranial abnormalities. Dictated by: Ronaldo Mata M.D. on 03/01/2023 at 17:08 Approved by: Ronaldo Mata M.D. on 03/01/2023 at 17:09
[2023-03-01] MEDS: diphenhydrAMINE 50 MG/ML VIAL 25 MG IV (16:41)
[2023-03-01] MEDS: METOCLOPRAMIDE 10 MG/2 ML INJ IV (16:41)
[2023-03-01] MEDS: DEXAMETHASONE 10 MG/ML VIAL IV (16:41)
[2023-03-01] MEDS: ACETAMINOPHEN 325 MG TABLET 975 MG PO (16:41)
[2023-03-01] MEDS: SODIUM CHLORIDE 0.9% 1,000 ML 1000 ML IV (16:42)
[2023-03-01 18:13] VITALS: BP 169/77; PULSE 54; RESP 16; O2SAT 96
== END 2023-03-01 18:14 | disposition home or self-care (01) ==
PROVIDERS: Emergency Provider Student in an Organized Health Care Education/Training Program; PCP Family Medicine
DX: R51.9 Headache, unspecified (principal)
CPT/HCPCS: 36415; 70450; 81003; 96361; 96374; 96375; 99284; J1100; J1200; J2765

== ENCOUNTER 2023-04-08 16:28 | Emergency (ER) | payer OTHER, SELFPAY ==
[2023-04-08 16:30] VITALS: BP 167/97; PULSE 89; RESP 18; TEMP 37; O2SAT 100; BMI 33.5
--- NOTE | 2023-04-08 18:27 | ED.EAR ---
HPI - Ear Problem <Jennifer Hall PA-C - Last Filed: 04/08/23 18:40> General Chief complaint: Ear Stated complaint: Hearing loss, Pain Time Seen by Provider: 04/08/23 17:29 Source: patient Mode of arrival: Ambulatory History of Present Illness HPI Narrative: Patient is a 52-year-old female with chronic conditions of diabetes presenting for evaluation of a clogged feeling in her ear since yesterday accompanied by bilateral jaw discomfort. She says that it does not hurt to move her jaw and she denies chest pain or shortness a breath. She notes that she developed achy feeling and chills on Tuesday and proceeded to have a cough with some nasal congestion. She denies fever nor sore throat. She is coming in for evaluation today because she is planning to leave on a cross[place]country trip and wants to find out why she feels like ?she has cotton balls in both her ears ? Related Data Previous Rx's Medication Instructions Recorded fluconazole 150 mg tablet 150 mg PO DAILY 1 dose #1 tab 02/08/20 tramadol 50 mg tablet 50 mg PO TID PRN pain #20 tabs 07/18/22 amoxicillin 875 mg-potassium 1 tab PO BID #20 tabs 04/08/23 clavulanate 125 mg tablet Allergies Allergy/AdvReac Type Severity Reaction Status Date / Time No Known Drug Allergies Allergy Verified 04/08/23 16:30 Review of Systems <Jennifer Hall PA-C - Last Filed: 04/08/23 18:40> Review of Systems Narrative: See HPI Patient History <Jennifer Hall PA-C - Last Filed: 04/08/23 18:40> Medical History COVID-19 Depression Diabetes Migraine Social History Smoking Status: Never smoker Smoking Status: Never smoker alcohol intake frequency: a few times a month Substance Use Type: marijuana Exam <Jennifer Hall PA-C - Last Filed: 04/08/23 18:40> Initial Vital Signs Initial Vital Signs: Vital Signs Temperature 98.6 F 04/08/23 16:30 Pulse Rate 89 04/08/23 16:30 Respiratory Rate 18 04/08/23 16:30 Blood Pressure 167/97 H 04/08/23 16:30 Pulse Oximetry 100 04/08/23 16:30 Oxygen Delivery Method Room Air 04/08/23 16:30 GENERAL: 52 year old patient appears stated age. Well-developed patient, in no acute distress. HEAD: Atraumatic. Normocephalic. EYES: Pupils equal round and reactive. Extraocular motions intact. No scleral icterus. No injection or drainage. ENT:. Nasal mucosa edematous with erythema. Nares are without bleeding or purulent drainage. Throat without erythema, No tonsillar hypertrophy or exudate noted. Airway patent. TM visualized bilaterally with in appear bilaterally bulging with erythema and fluid present in inferior aspect of bilateral TM. Decreased hearing to finger rub on the left compared to right. NECK: Trachea midline. Non tender, No cervical, peritonsillar, submandibular lymphadenopathy, no clicking noted on palpation of jaw with forward or [id number] jaw movement CARDIOVASCULAR: Regular rate and rhythm without murmurs, gallops, or rubs. RESPIRATORY: Clear to auscultation. Breath sounds equal bilaterally. No wheezes, rales, or rhonchi. NEURO: AOx3. SKIN: No rash or erythema of visible areas <Rob Fernandez DO - Last Filed: 04/09/23 07:03> Initial Vital Signs Initial Vital Signs: Vital Signs Temperature 98.6 F 04/08/23 16:30 Pulse Rate 89 04/08/23 16:30 Respiratory Rate 18 04/08/23 16:30 Blood Pressure 167/97 H 04/08/23 16:30 Pulse Oximetry 100 04/08/23 16:30 Oxygen Delivery Method Room Air 04/08/23 16:30 Course <Jennifer Hall PA-C - Last Filed: 04/08/23 18:40> Vital Signs Vital signs: Vital Signs - 8 hr 04/08/23 16:30 Temperature 98.6 F Pulse Rate 89 Respiratory Rate 18 Blood Pressure 167/97 H Pulse Oximetry 100 Oxygen Delivery Method Room Air <Rob Fernandez DO - Last Filed: 04/09/23 07:03> Vital Signs Vital signs: Vital Signs - 8 hr 04/08/23 16:30 Temperature 98.6 F Pulse Rate 89 Respiratory Rate 18 Blood Pressure 167/97 H Pulse Oximetry 100 Oxygen Delivery Method Room Air Medical Decision Making <Jennifer Hall PA-C - Last Filed: 04/08/23 18:40> [facility] Narrative Medical decision making narrative: Patient is a 52-year-old female presenting for evaluation of decreased hearing since yesterday as well as bilateral jaw discomfort. She denies any pain with chewing. She had upper respiratory symptoms of cough chills and achiness starting 4 days ago. She denies any sore throat. She denies chest pain or shortness of breath. Review of physical exam shows bilaterally bulging and erythematous tympanic membranes with some fluid present in the inferior aspect. Recommend treatment with Augmentin if pain is continuing after 3 days if symptoms. Discussed with patient that in adult, it is possible that it may resolve after 3 days. Also discussed she may use Sudafed to help her symptoms since she denies any underlying heart condition. Reviewed side effects with patient. Advised her to follow up with primary care provider ENT if her hearing does not improve despite conservative management home over the next 3 weeks. She is agreeable with plan of care. Discussed return precautions with patient including chest pain. Differentials considered including otitis externa, but canal's clear, mastoiditis, but no pain of mastoid bilaterally, tooth abscess, but patient denies any tooth pain, OH but jaw pain is bilaterally present in setting of likely bilateral otitis media and patient has no chest pain or shortness of breath. Findings and discharge diagnosis discussed with patient/family followed by verbalization of understanding Return precautions discussed with patient/family whom verbalize understanding of diagnosis and plan Discharge Plan Departure Patient Disposition: Home Clinical Impression: Otitis media Activity Restrictions/Additional Instructions: You were seen today for decrease in hearing. Evaluation of your ear shows that looks like you are developing an ear infection. It was recommended to wait 3 days prior to prescribing antibiotics for otitis media in adults. Since you are going out of town, I will go ahead and prescribe Augmentin for you, but I caution you to wait 2 days prior to taking the medication. Once started, I recommend you complete the full course. I advised you to follow up with your primary care provider or ENT if your hearing does not improve after about 3 weeks. You may use Sudafed to help increase drainage from your inner ear which should help your hearing. You may take this if you do not have any underlying heart issues as it may increase your heart rate and raised your blood pressure. Please follow up in the emergency department if you should develop any concerning symptoms such as chest pain, worsening pain behind your ear accompanied by fever or other concerning symptoms. Thank you for coming to [facility]. Prescriptions: New amoxicillin-pot clavulanate 875-125 mg tablet 1 tab PO BID Qty: 20 0RF No Action fluconazole 150 mg tablet 150 mg PO DAILY Qty: 1 0RF Rx Instructions: Take on Tuesday if still having symptoms tramadol 50 mg tablet 50 mg PO TID PRN (Reason: pain) Qty: 20 0RF Referrals: Sallie Olguin DO [Primary Care Provider] - Stand Alone Forms: Patient Portal/API <Rob Fernandez DO - Last Filed: 04/09/23 07:03> Cosign ED Attending Patrick Attestation: I was immediately available in the department for consultation. Documentation has been reviewed. I agree with assessment and plan.
[2023-04-08 18:43] VITALS: BP 110/50; PULSE 72; RESP 18; O2SAT 99
== END 2023-04-08 18:46 | disposition home or self-care (01) ==
PROVIDERS: Emergency Provider Physician Assistant; PCP Family Medicine
DX: H66.93 Otitis media, unspecified, bilateral (principal)
CPT/HCPCS: 99281

== ENCOUNTER 2023-08-07 15:07 | Emergency (ER) | payer OTHER, SELFPAY ==
[2023-08-07 15:24] VITALS: BP 161/94; PULSE 83; RESP 20; TEMP 36.4; O2SAT 97; BMI 33.6
--- NOTE | 2023-08-07 15:57 | ED.DIZZY ---
HPI - Dizziness <Jennifer Hall PA-C - Last Filed: 08/07/23 20:07> General Chief Complaint: Dizziness Stated Complaint: dizzy spells T-4 Time Seen by Provider: 08/07/23 15:57 Source: patient Mode of arrival: Ambulatory History of Present Illness HPI Narrative: Patient is a 53-year-old female with chronic conditions of migraines and diabetes and treated with venlafaxine for depression presenting for evaluation of vertigo x3 days. She reports feeling like the room is spinning. She states that she often works long shifts at the [employer], was taking a bath at the end of the day and when bringing her head back to wash her hair, she felt increased vertigo like the room was spinning.. She denies any vision change or weakness, no numbness. She denies any headache or change in hearing or blowing sounds. She denies any congestion. She reports that she started feeling nauseated today but has not vomited. She states that she does have migraines, but generally does not have dizziness. She states her last migraine was 3 weeks ago. She denies any recent upper respiratory infection. She denies chest pain or shortness of breath. Related Data Previous Rx's Medication Instructions Recorded fluconazole 150 mg tablet 150 mg PO DAILY 1 dose #1 tab 02/08/20 tramadol 50 mg tablet 50 mg PO TID PRN pain #20 tabs 07/18/22 amoxicillin 875 mg-potassium 1 tab PO BID #20 tabs 04/08/23 clavulanate 125 mg tablet meclizine 12.5 mg tablet 12.5 mg PO TID PRN dizziness #9 08/07/23 tabs ondansetron 4 mg disintegrating 4 mg PO Q8H PRN nausea and 08/07/23 tablet vomiting #9 tabs Allergies Allergy/AdvReac Type Severity Reaction Status Date / Time No Known Drug Allergies Allergy Verified 04/08/23 16:30 Review of Systems <Jennifer Hall PA-C - Last Filed: 08/07/23 20:07> Review of Systems Narrative: See HPI Patient History <Jennifer Hall PA-C - Last Filed: 08/07/23 20:07> Medical History COVID-19 Depression Migraine Diabetes Social History Smoking Status: Never smoker Smoking Status: Never smoker alcohol intake frequency: a few times a month Substance Use Type: marijuana Exam <Jennifer Hall PA-C - Last Filed: 08/07/23 20:07> Initial Vital Signs Initial Vital Signs: Vital Signs Temperature 97.6 F 08/07/23 15:24 Pulse Rate 83 08/07/23 15:24 Respiratory Rate 20 08/07/23 15:24 Blood Pressure 161/94 H 08/07/23 15:24 Pulse Oximetry 97 08/07/23 15:24 Oxygen Delivery Method Room Air 08/07/23 15:24 GENERAL: 53 year old patient appears stated age. Well-developed patient, in no acute distress. HEAD: Atraumatic. Normocephalic. EYES: Pupils equal round and reactive. Extraocular motions intact without pain. No scleral icterus. No injection or drainage. ENT: Nose without bleeding, purulent drainage. Throat without erythema, tonsillar hypertrophy or exudate. Airway patent. TMs pearly mackenzie with good COL, left TM appears to have fluid present behind, but no bulging, normal landmarks present Nontender to mastoid, tragus or pinna palpation. NECK: Trachea midline. Non tender. No cervical lymphadenopathy CARDIOVASCULAR: Regular rate and rhythm without murmurs, gallops, or rubs. RESPIRATORY: Clear to auscultation. Breath sounds equal bilaterally. No wheezes, rales, or rhonchi. EXTREMITIES: No edema or joint tenderness. NEURO: AOx3. 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, patellar 2+ bilaterally, negative Romberg sign SKIN: No rash or erythema of visible areas <Radhika Gaxiola DO - Last Filed: 08/07/23 21:02> Initial Vital Signs Initial Vital Signs: Vital Signs Temperature 97.6 F 08/07/23 15:24 Pulse Rate 83 08/07/23 15:24 Respiratory Rate 20 08/07/23 15:24 Blood Pressure 161/94 H 08/07/23 15:24 Pulse Oximetry 97 08/07/23 15:24 Oxygen Delivery Method Room Air 08/07/23 15:24 Course <Jennifer Hall PA-C - Last Filed: 08/07/23 20:07> Orders Ordered: Discontinued Medications Diazepam (Diazepam 10 Mg/2 Ml Syringe) 2 mg IV NOW ONE Stop: 08/07/23 18:12 Last Admin: 08/07/23 18:39 Dose: 2 mg Documented By: SARKIS Sodium Chloride (Normal Saline 0.9%) 1,000 mls @ 1,000 mls/hr IV BOLUS ONE Stop: 08/07/23 19:11 Last Infusion: 08/07/23 19:04 Dose: Infused Documented By: Admin: 08/07/23 18:30 Dose: 1,000 mls/hr Documented By: SARKIS Meclizine HCl (Meclizine Hcl 12.5 Mg Tablet) 25 mg PO NOW ONE Stop: 08/07/23 16:19 Last Admin: 08/07/23 16:26 Dose: 25 mg Documented By: SARKIS Ondansetron HCl (Ondansetron 4 Mg Odt) 4 mg SL NOW ONE Stop: 08/07/23 16:19 Last Admin: 08/07/23 16:26 Dose: 4 mg Documented By: SARKIS Vital Signs Vital signs: Vital Signs - 8 hr 08/07/23 15:24 08/07/23 18:50 08/07/23 19:07 Temperature 97.6 F Pulse Rate 83 65 62 Respiratory Rate 20 18 Blood Pressure 161/94 H 135/75 144/65 H Pulse Oximetry 97 99 99 Oxygen Delivery Method Room Air Room Air Room Air <Radhika Gaxiola DO - Last Filed: 08/07/23 21:02> Orders Ordered: Discontinued Medications Diazepam (Diazepam 10 Mg/2 Ml Syringe) 2 mg IV NOW ONE Stop: 08/07/23 18:12 Last Admin: 08/07/23 18:39 Dose: 2 mg Documented By: SARKIS Sodium Chloride (Normal Saline 0.9%) 1,000 mls @ 1,000 mls/hr IV BOLUS ONE Stop: 08/07/23 19:11 Last Infusion: 08/07/23 19:04 Dose: Infused Documented By: Admin: 01/21/24 18:30 Dose: 1,000 mls/hr Documented By: SARKIS Meclizine HCl (Meclizine Hcl 12.5 Mg Tablet) 25 mg PO NOW ONE Stop: 08/07/23 16:19 Last Admin: 08/07/23 16:26 Dose: 25 mg Documented By: SARKIS Ondansetron HCl (Ondansetron 4 Mg Odt) 4 mg SL NOW ONE Stop: 08/07/23 16:19 Last Admin: 08/07/23 16:26 Dose: 4 mg Documented By: SARKIS Vital Signs Vital signs: Vital Signs - 8 hr 08/07/23 15:24 08/07/23 18:50 08/07/23 19:07 Temperature 97.6 F Pulse Rate 83 65 62 Respiratory Rate 20 18 Blood Pressure 161/94 H 135/75 144/65 H Pulse Oximetry 97 99 99 Oxygen Delivery Method Room Air Room Air Room Air [facility] - Dizziness <Jennifer Hall PA-C - Last Filed: 08/07/23 20:07> [facility] Narrative Medical decision making narrative: Patient is a 53-year-old female with chronic conditions of depression and periodic migraines presenting for evaluation of vertigo for the last 3 days. She states that it worsens with movement. She denies chest pain shortness for breath or any neurological disturbance. No evidence of neurological deficit on exam. She has been given a dose of meclizine and Zofran. She reports no improvement in her symptoms. She denies upper respiratory infection prior to her symptoms. She denies any headache. Multiple etiologies for patient's symptoms considered including, but not limited to: Labyrinthitis, BPPV, otitis media, vestibular migraine, cerebellar ischemia Labs reviewed and interpreted by myself: Consultations: Consulted Dr. Chavez. Recommended IV fluids, Fuad maneuver, consider Valium. Discussed with patient. She is agreeable to receiving fluids. Performed the Fuad maneuver with no improvement in her symptoms. We will proceed with fluids and Valium. Discussed risk of drowsiness with the Valium. She is agreeable with this plan of care. After treatment today, and lying down, patient reports feeling somewhat better. Discussed with patient that suspicion for concerning neurological cause is low as she had no deficits on exam no no report of deficits in her history. I recommend she continue follow up with her primary care provider to continued investigating cause of dizziness. Recommend she returned to the ER if she should develop any headache pain, double vision, weakness or numbness in her arms or legs or other concerning signs or symptoms. She is agreeable with this plan of care and will plan to follow up with her PCP. I have provided a prescription of Zofran as well as meclizine for her. Patient's symptoms improved over duration of stay with above-stated therapies. Findings and discharge diagnosis discussed with patient/family followed by verbalization of understanding Return precautions discussed with patient/family whom verbalize understanding of diagnosis and plan Discharge Plan Departure Patient Disposition: Home Clinical Impression: Vertigo Instructions: DI for Vertigo Activity Restrictions/Additional Instructions: Thank you for coming in today for your care. You were diagnosed with vertigo. We discussed that there was no presence noted today of weakness in her limbs, numbness, visual disturbance or headache. Your neurological exam was normal today as well. Your symptoms seem most consistent with vertigo. You received multiple treatments today including meclizine, Zofran for nausea, fluids, Fuad maneuver and diazepam to help relieve your vertigo. I recommend continued treatment at home with meclizine as needed. Please have somebody drive you home today as the diazepam can cause drowsiness over the next day. Please refrain from alcohol use or driving until your symptoms have improved. I recommend continued follow up with your primary care provider to evaluate further possible causes of your dizziness. Please return to the ER if you should develop numbness or weakness of any of her limbs, double vision, headache or other concerning signs or symptoms. Prescriptions: New ondansetron 4 mg tablet,disintegrating 4 mg PO Q8H PRN (Reason: nausea and vomiting) Qty: 9 0RF meclizine 12.5 mg tablet 12.5 mg PO TID PRN (Reason: dizziness) Qty: 9 0RF No Action fluconazole 150 mg tablet 150 mg PO DAILY Qty: 1 0RF Rx Instructions: Take on Tuesday if still having symptoms tramadol 50 mg tablet 50 mg PO TID PRN (Reason: pain) Qty: 20 0RF amoxicillin-pot clavulanate 875-125 mg tablet 1 tab PO BID Qty: 20 0RF Referrals: Sallie Olguin DO [Primary Care Provider] - Stand Alone Forms: Patient Portal/API ED Sign-out <Radhika Gaxiola DO - Last Filed: 08/07/23 21:02> Cosign ED Attending Anitaature Attestation: I was immediately available in the department for consultation. Patient case was not discussed with myself but was discussed with Dr. Chavez.
[2023-08-07] MEDS: MECLIZINE HCL 12.5 MG TABLET 25 MG PO (16:26)
[2023-08-07] MEDS: ONDANSETRON 4 MG ODT SL (16:26)
--- NOTE | 2023-08-07 17:52 | PC.NURSE ---
provider to try epily maneuver as per Provider request. Bed brought to room.
[2023-08-07] MEDS: SODIUM CHLORIDE 0.9% 1,000 ML 1000 ML IV (18:30)
[2023-08-07] MEDS: diazePAM 10 MG/2 ML SYRINGE 2 MG IV (18:39)
[2023-08-07 18:50] VITALS: BP 135/75; PULSE 65; RESP 18; O2SAT 99
[2023-08-07 19:07] VITALS: BP 144/65; PULSE 62; O2SAT 99
== END 2023-08-07 19:35 | disposition home or self-care (01) ==
PROVIDERS: Emergency Provider Physician Assistant; PCP Family Medicine
DX: R42 Dizziness and giddiness (principal)
CPT/HCPCS: 96361; 96374; 99284; J3360